=== PATIENT | male | born 1950 ===

== ENCOUNTER 2020-03-16 20:35 | Emergency (ER) | payer OTHER ==
[~2020-03-16] VITALS: Ht 182.9 cm; Wt 107.0 kg
--- NOTE | 2020-03-16 20:54 | NUR ---
BIBA, cardiac arrest with CPR in progress upon arrival to ED. Asystole, pulseless noted upon arrival. MD Chen, RT, and pharmacy at bedside immediately upon arrival. Per EMS, pt is employee at [employer]. Witnessed cardiac arrest at [facility]. CPR initiated by bystanders, continued upon [facility] arrival. 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 Pt intubated by EMS with oral airway. See paper charting for additional details of code s/p arrival to [facility] ED. No medical hx known upon arrival. Social work and registration attempting to locate pt ID and next of kin. Please see timeline below. 2029: arrival to [facility] ED, CPR in progress 2031: pulse check, asystole 2033: pulse check, asystole 2034: pulse check, asystole, epi given 2035: pulse check, asystole, bedside echo by April HERNANDEZ, remains pulseless with pupils fixed/dilated 2037: pulse check, asystole, bicarb given 2039: pulse check, asystole, epi given 2041: pulse check, asystole 2043: pulse check, asystole, TOD called by April HERNANDEZ with multiple ED RNs to confirm
--- NOTE | 2020-03-16 21:00 | NUR ---
Patient smitha found- Emergency contacted listed at [facility] Addendum: 03/16/20 at 2105 by RFRUHLING No answer. Voicemail left
[2020-03-16] MEDS ORDERED: SODIUM BICARB 8.4%, 50ML SYRINGE ONE (21:04)
[2020-03-16] MEDS ORDERED: EPINEPHRINE SYRINGE 0.1 MG/ML, 10ML ONE (21:04)
--- NOTE | 2020-03-16 21:05 | NUR ---
Skiving Machine Operator's office called. Basic details conveyed to geological drafter Anne Freeman. She reports her collegue will come to unit to personally evaluate the patient shortly
--- NOTE | 2020-03-16 21:10 | NUR ---
Home Performance Consultant called [facility]. Home Performance Consultant spoke to Sara Montana. curriculum writer with no history to provide other that what whas personally assessed (unable to contact family). Ms. Montana reports patient is a canidate for tissue donation. Case# [id number]
--- NOTE | 2020-03-16 22:03 | NUR ---
[facility]ates[facility] Pulmonary Nurse Practitioner Lora Rojas to bedside. She examined patient, then inventoried his belongings and asked that [facility] then her office will be in contact
--- NOTE | 2020-03-16 22:35 | NUR ---
REPORT OF PT FROM FREDY MAY. PT IN BODY BAG IN [facility] A[place] [facility] [place]
--- NOTE | 2020-03-16 23:04 | NUR ---
PT PACKAGED INTO [facility] AT THIS TIME AND TRANSPORTED BY STAFF TO [facility] [place].
== END 2020-03-16 23:07 | disposition expired ==
LOC: EDBD 20:35 → ED 21:05
DX: I46.9 Cardiac arrest, cause unspecified (principal); I49.01 Ventricular fibrillation
CPT/HCPCS: 92950; 99285